=== PATIENT | female | born 1955 | race Caucasian/White ===

== ENCOUNTER 2017-07-27 11:15 | Day surgery (SDC) | payer MEDICAID ==
[2015-09-10 08:59] VITALS: BMI 28.1
[~2017-07-27 11:15] MED LIST: Carbachol 0.01% IO ONE; Chondroitin/Hyaluronate Opth Syringe KIT (0.55 ml-0.5 ml) IO ONE; Ciprofloxacin 0.3% OPTH SOLN OD SCH; Cyclopentolate 1% Opth (2 ml) OD SCH; Flurbiprofen 0.03% Opht SOLN OD SCH; Hyaluronidase Human, Recombi 150 U/ML VIAL ONE; Lactated Ringer's 500 ML IV ONE; Phenylephrine 2.5% Opht Soln OD SCH; Tetracaine 0.5% Ophth (OR ONLY) ONE; Tobramycin/Dexamethasone (Tobradex) Opth Sol (2.5 ml) ONE; Tobramycin/Dexamethasone OPHT OINT ONE; Tropicamide 1% Opht SOLUTION OD SCH
[2017-07-27] MEDS ORDERED: Lactated Ringer's 500 ML IV ONE (12:15)
[2017-07-27] MEDS ORDERED: Propofol 10 mg/ml Inj (20 ML) ONE (15:12)
[2017-07-27] MEDS ORDERED: Lidocaine Hydrochloride 5 ML INJ ONE (15:12)
[2017-07-27] MEDS ORDERED: Lactated Ringer's 1,000 ML IV ONE (15:20)
[2017-07-27 16:11] VITALS: BP 125/74; PULSE 81; RESP 20; TEMP 97.7; O2SAT 98
--- NOTE | 2017-07-28 08:48 | OP ---
PROCEDURE DATE: 07/27/2017 PREOPERATIVE DIAGNOSIS: Cataract right eye. POSTOPERATIVE DIAGNOSIS: Cataract right eye. OPERATIVE PROCEDURE: Cataract extraction with implant right eye. ANESTHESIA TYPE: Local, standby. COMPLICATIONS: None. PROCEDURE: Local anesthesia was achieved using a mixture of 1% lidocaine and Amphadase. The patient was then prepped and draped in the usual sterile fashion for ophthalmic surgery. Betadine drops were placed into the eye. A lid speculum was used and a sideport incision was made using a 15 degree blade. Viscoelastic was used to fill the anterior chamber and a 2.7 millimeter slit blade was used to create a surgical opening. Additional viscoelastic was placed into the eye and a capsulorrhexis was performed. Hydrodissection and delineation were then carried out. Phacoemulsification of the nucleus was performed with ease and cortical cleanup was achieved without difficulty. The capsular bag was refilled using viscoelastic and a posterior chamber lens was inserted through the existing wound and placed into the capsular bag and easily centered. All viscoelastic was then aspirated from the eye and Miochol was instilled for good symmetric pupillary constriction. The sideport wound was hydrated as necessary and a good watertight closure was observed at the conclusion of the case. A TobraDex soaked collagen shield was then placed over the eye. The lid speculum was removed. TobraDex ointment was placed onto the eye and a patch and shield were placed. The patient tolerated the procedure well. Temo Truong MD
== END 2017-07-27 16:26 | disposition home or self-care (01) ==
LOC: C.SDS 11:15
PROVIDERS: ATTEND Ophthalmology
DX: E11.36 Type 2 diabetes mellitus with diabetic cataract (principal); I10 Essential (primary) hypertension
CPT/HCPCS: 66984; 82948; J2704; J3470; J7120; V2632

== ENCOUNTER 2018-10-28 11:08 | Outpatient (CLI) | payer MEDICAID | END 2018-10-28 11:09 | disposition home or self-care (01) | LOC: C.MAMMO 11:09 | DX: Z12.31 Encounter for screening mammogram for malignant neoplasm of breast (principal) ==